=== PATIENT | male | born 1945 | race Caucasian/White ===

== ENCOUNTER 2023-08-16 16:20 | Inpatient (IN) | payer OTHER ==
[~2023-08-16] VITALS: Ht 170.2 cm; Wt 78.5 kg
[2023-08-16 16:25] VITALS: BP_SYST 135; PULSE 88; RESP 18; TEMP 98.5; O2SAT 98
[2023-08-16] MEDS ORDERED: DEXAMETHASONE SOD PHOSPHATE 10 MG/ML VIAL ONE (17:01)
[2023-08-16 17:44] LABS: BASOPHILS # (AUTO) 0.1 K/uL (0.0-0.2); BASOPHILS % (AUTO) 0.4 % (0.0-2.0); EOSINOPHILS # (AUTO) 0.1 K/uL (0.0-0.4); EOSINOPHILS % (AUTO) 0.4 % (0.0-4.0); HEMATOCRIT 46.3 % (36-54); HEMOGLOBIN 15.2 g/dL (14.0-18.0); LYMPHOCYTES # (AUTO) 1.2 K/uL (1.0-5.5); LYMPHOCYTES % (AUTO) 8.2 % (20.5-51.5); MEAN CORPUSCULAR HEMOGLOBIN 29 pg (27-31); MEAN CORPUSCULAR HGB CONC 33 % (32-36); MEAN CORPUSCULAR VOLUME 87 fL (79.0-98.0); MONOCYTES # (AUTO) 1.1 K/uL (0.0-1.0); MONOCYTES % (AUTO) 7.5 % (1.7-9.3); NEUTROPHILS # (AUTO) 12.2 K/uL (1.8-7.7); NEUTROPHILS % (AUTO) 83.5 % (40.0-70.0); PLATELET COUNT (AUTO) 356 K/uL (130-430); RED BLOOD CELL COUNT(AUTO) 5.32 MIL/uL (4.2-6.2); RED CELL DISTRIBUTION WIDTH 14.4 % (9.0-15.0); WHITE BLOOD COUNT (AUTO) 14.6 K/uL (4.8-10.8)
[2023-08-16 17:55] LABS: ALANINE AMINOTRANSFERASE 28 U/L (12-78); ALBUMIN 3.4 g/dL (3.4-4.8); ANION GAP 7 (5-15); ASPARTATE AMINOTRANSFERASE 21 U/L (10-37); CARBON DIOXIDE 28 mmol/L (23-29); CHLORIDE 97 mmol/L (98-107); CREATININE 1.01 mg/dL (0.55-1.30); GLUCOSE 122 mg/dL (74-106); LIPASE 25 U/L (16-77); POTASSIUM 4.5 mmol/L (3.5-5.1); SODIUM SERUM 132 mmol/L (136-145); TOTAL BILIRUBIN 0.7 mg/dL (0.0-1.0); TOTAL PROTEIN, SERUM 8.1 g/dL (6.4-8.3); UREA NITROGEN, BLOOD 15 mg/dL (8-21)
[2023-08-16] MEDS ORDERED: MORPHINE 4 MG INJ. 4 MG/ML VIAL IVP ONE ×2 (19:45→20:45)
[2023-08-16] MEDS ORDERED: KETOROLAC TROMETHAMINE 30 MG VIAL IVP ONE (19:45)
[2023-08-16] MEDS ORDERED: NACL 0.9% 1,000 ML IV ONE (19:45)
[2023-08-16] MEDS ORDERED: ONDANSETRON HCL 4 MG/2 ML VIAL IVP ONE (19:45)
[2023-08-16] MEDS ORDERED: LEVOFLOXACIN 250 MG/D5W 50 ML IV ONE (20:45)
[2023-08-16] MEDS ORDERED: metroNIDAZOLE 500 mg/NS 100 ML IV ONE (20:45)
[2023-08-16] MEDS ORDERED: ONDANSETRON HCL 4 MG/2 ML VIAL IVP PRN (23:00)
[2023-08-16] MEDS ORDERED: NALOXONE HCL 0.4 MG/ML AMP (NARCAN) IVP PRN (23:00)
[2023-08-16] MEDS ORDERED: ZOLPIDEM TARTRATE 5 MG TABLET PO PRN (23:00)
[2023-08-16] MEDS ORDERED: HYDROmorphone 1 MG/ML INJ. CARTRIDGE IVP PRN (23:00)
[2023-08-16] MEDS ORDERED: KETOROLAC TROMETHAMINE 15 MG VIAL IVP PRN (23:00)
[2023-08-16] MEDS ORDERED: ACETAMINOPHEN 325 MG TABLET PO PRN (23:00)
[2023-08-17] MEDS ORDERED: LISI2.5T48 PO (01:04)
[2023-08-17] MEDS ORDERED: CHOL500051 PO (01:04)
[2023-08-17 04:57] LABS: BILIRUBIN,URINE 1+ (NEGATIVE); BLOOD, URINE NEGATIVE (NEGATIVE); CLARITY/URINE CLEAR (CLEAR); COLOR,URINE YELLOW (YELLOW); GLUCOSE,URINE NEGATIVE (NEGATIVE); KETONES,URINE NEGATIVE (NEGATIVE); LEUKOCYTE ESTERASE ,URINE NEGATIVE (NEGATIVE); NITRITE, URINE NEGATIVE (NEGATIVE); PH,URINE 6.5 (5.0-8.0); PROTEIN URINE TRACE (NEGATIVE)
[2023-08-17 05:41] LABS: BACTERIA,URINE None Seen /HPF (None Seen)
[2023-08-17] MEDS: metroNIDAZOLE 500 mg/NS 100 ML IV SCH ×3 (06:12→22:30)
[2023-08-17 07:25] LABS: BASOPHILS % (AUTO) 0.2 % (0.0-2.0); EOSINOPHILS # (AUTO) 0.1 K/uL (0.0-0.4); EOSINOPHILS % (AUTO) 1.1 % (0.0-4.0); HEMATOCRIT 40.8 % (36-54); HEMOGLOBIN 13.5 g/dL (14.0-18.0); LYMPHOCYTES # (AUTO) 1.1 K/uL (1.0-5.5); LYMPHOCYTES % (AUTO) 9.7 % (20.5-51.5); MEAN CORPUSCULAR HEMOGLOBIN 29 pg (27-31); MEAN CORPUSCULAR HGB CONC 33 % (32-36); MEAN CORPUSCULAR VOLUME 88 fL (79.0-98.0); MONOCYTES # (AUTO) 1.3 K/uL (0.0-1.0); MONOCYTES % (AUTO) 12.1 % (1.7-9.3); NEUTROPHILS # (AUTO) 8.4 K/uL (1.8-7.7); NEUTROPHILS % (AUTO) 76.9 % (40.0-70.0); PLATELET COUNT (AUTO) 290 K/uL (130-430); RED BLOOD CELL COUNT(AUTO) 4.66 MIL/uL (4.2-6.2); RED CELL DISTRIBUTION WIDTH 14.6 % (9.0-15.0); WHITE BLOOD COUNT (AUTO) 10.9 K/uL (4.8-10.8)
[2023-08-17 07:32] LABS: PROTHROMBIN TIME 10.8 SECS (9.5-12.5)
[2023-08-17 08:06] LABS: ALBUMIN 2.8 g/dL (3.4-4.8); ANION GAP 5 (5-15); CALCIUM 8.5 mg/dL (8.4-11.0); CARBON DIOXIDE 28 mmol/L (23-29); CHLORIDE 100 mmol/L (98-107); CREATININE 0.94 mg/dL (0.55-1.30); GLUCOSE 138 mg/dL (74-106); LIPASE 25 U/L (16-77); POTASSIUM 4.4 mmol/L (3.5-5.1); SODIUM SERUM 133 mmol/L (136-145); TOTAL PROTEIN, SERUM 6.6 g/dL (6.4-8.3); UREA NITROGEN, BLOOD 17 mg/dL (8-21)
[2023-08-17 08:28] LABS: ALANINE AMINOTRANSFERASE 323 U/L (12-78); ASPARTATE AMINOTRANSFERASE 315 U/L (10-37)
[2023-08-17] MEDS: D5LR 1,000 ML IV SCH ×2 (09:10→21:15)
[2023-08-17] MEDS ORDERED: NS 500 ML IV ONE (09:15)
[2023-08-17 13:25] LABS: CREATINE KINASE, TOTAL 85 U/L (39-308)
[2023-08-17] MEDS ORDERED: ISOFLURANE 15 MIN GAS INH ONE (13:48)
[2023-08-17] MEDS ORDERED: LR 1,000 ML IV.SOLN IV ONE (13:48)
[2023-08-17] MEDS ORDERED: MIDAZOLAM HCL/PF 2 MG/2 ML SYRINGE ONE (13:48)
[2023-08-17] MEDS ORDERED: DEXAMETHASONE SOD PHOSPHATE 4 MG/ML VIAL ONE (13:48)
[2023-08-17] MEDS ORDERED: SEVOFLURANE 15 MIN GAS INH ONE (13:48)
[2023-08-17] MEDS ORDERED: fentaNYL CITRATE/PF 100 MCG/2 ML AMP ONE (13:48)
[2023-08-17] MEDS ORDERED: THROMBIN (BOVINE) 5000 UNITS/ VIAL TP ONE ×2 (13:48→15:11)
[2023-08-17] MEDS ORDERED: ONDANSETRON HCL 4 MG/2 ML VIAL ONE (13:48)
[2023-08-17] MEDS ORDERED: NS IRRIG SOLN 1000 ML IR ONE (13:48)
[2023-08-17] MEDS ORDERED: PROPOFOL 200MG/ 20ML VIAL (DIPRIVAN) IV ONE (13:48)
[2023-08-17] MEDS ORDERED: ROCURONIUM BROMIDE 10 MG/ML (ZEMURON) ONE (13:48)
[2023-08-17] MEDS ORDERED: BUPIVACAINE /PF 0.25% 30 ML VIAL INJ ONE (13:48)
[2023-08-17] MEDS ORDERED: LABETALOL 100 MG/ 20ML VIAL IVP PRN (14:30)
[2023-08-17] MEDS ORDERED: HYDROmorphone 1 MG/ML INJ. CARTRIDGE IVP PRN ×2 (14:30)
[2023-08-17] MEDS ORDERED: MEPERIDINE HCL/PF 25 MG/ML DISP.SYRIN IVP PRN (14:30)
[2023-08-17] MEDS ORDERED: METOCLOPRAMIDE HCL 10 MG/2 ML VIAL IVP PRN (14:30)
[2023-08-17] MEDS ORDERED: hydrALAZINE HCL 20 MG/ML VIAL IVP PRN (14:30)
[2023-08-17] MEDS ORDERED: LR 1,000 ML IV SCH (14:30)
[2023-08-17 15:46] LABS: CHOLESTEROL 173 mg/dL (<200); HDL CHOLESTEROL 69 mg/dL (>45); TRIGLYCERIDES 72 mg/dL (30-150)
[2023-08-17] MEDS ORDERED: ONDANSETRON HCL 4 MG/2 ML VIAL IVP PRN (16:00)
[2023-08-17] MEDS ORDERED: ACETAMINOPHEN 325 MG TABLET PO PRN (16:00)
[2023-08-17] MEDS ORDERED: metroNIDAZOLE 500 mg/NS 100 ML IV SCH (16:00)
[2023-08-17] MEDS ORDERED: NALOXONE HCL 2 MG/2 ML SYR IVP PRN ×2 (16:00)
[2023-08-17] MEDS ORDERED: HYDROmorphone 1 MG/ML INJ. CARTRIDGE ONE (16:20)
[2023-08-17 16:54] LABS: BASOPHILS % (AUTO) 0.1 % (0.0-2.0); EOSINOPHILS % (AUTO) 0.1 % (0.0-4.0); HEMATOCRIT 39.9 % (36-54); HEMOGLOBIN 13.1 g/dL (14.0-18.0); LYMPHOCYTES # (AUTO) 0.8 K/uL (1.0-5.5); LYMPHOCYTES % (AUTO) 8.3 % (20.5-51.5); MEAN CORPUSCULAR HEMOGLOBIN 29 pg (27-31); MEAN CORPUSCULAR HGB CONC 33 % (32-36); MEAN CORPUSCULAR VOLUME 89 fL (79.0-98.0); MONOCYTES # (AUTO) 0.6 K/uL (0.0-1.0); MONOCYTES % (AUTO) 5.4 % (1.7-9.3); NEUTROPHILS # (AUTO) 8.8 K/uL (1.8-7.7); NEUTROPHILS % (AUTO) 86.1 % (40.0-70.0); PLATELET COUNT (AUTO) 287 K/uL (130-430); RED BLOOD CELL COUNT(AUTO) 4.51 MIL/uL (4.2-6.2); RED CELL DISTRIBUTION WIDTH 14.5 % (9.0-15.0); WHITE BLOOD COUNT (AUTO) 10.2 K/uL (4.8-10.8)
[2023-08-17 21:00] VITALS: BP_SYST 106; BP_SYST 111; PULSE 107; RESP 22; TEMP 98; O2SAT 93
[2023-08-17 21:21] LABS: BASOPHILS % (AUTO) 0.2 % (0.0-2.0); HEMOGLOBIN 11.8 g/dL (14.0-18.0); LYMPHOCYTES # (AUTO) 0.4 K/uL (1.0-5.5); LYMPHOCYTES % (AUTO) 4.3 % (20.5-51.5); MEAN CORPUSCULAR HEMOGLOBIN 29 pg (27-31); MEAN CORPUSCULAR HGB CONC 33 % (32-36); MONOCYTES # (AUTO) 0.7 K/uL (0.0-1.0); MONOCYTES % (AUTO) 6.4 % (1.7-9.3); NEUTROPHILS % (AUTO) 89.1 % (40.0-70.0); PLATELET COUNT (AUTO) 261 K/uL (130-430); RED BLOOD CELL COUNT(AUTO) 4.12 MIL/uL (4.2-6.2); RED CELL DISTRIBUTION WIDTH 14.3 % (9.0-15.0); WHITE BLOOD COUNT (AUTO) 10.2 K/uL (4.8-10.8)
[2023-08-17 21:23] LABS: MEAN CORPUSCULAR VOLUME 87 fL (79.0-98.0)
[2023-08-17 22:00] VITALS: BP_SYST 99; PULSE 98; RESP 14; O2SAT 94
[2023-08-17] MEDS ORDERED: CEFAZOLIN 2 GM IVPB PREMIX 50 ML IV ONE (22:24)
[2023-08-17] MEDS ORDERED: metroNIDAZOLE 500 mg/NS 100 ML IV ONE ×2 (22:25→23:53)
[2023-08-17] MEDS: CEFAZOLIN 2 GM IVPB PREMIX 50 ML IV SCH (22:32)
[2023-08-17] MEDS: NACL 0.9% 1,000 ML IV SCH (22:33)
[2023-08-17 23:00] VITALS: BP_SYST 106; PULSE 99; RESP 14; O2SAT 93
[2023-08-18] VITALS (19 sets, daily range): BP systolic 83–133; PULSE 72–104; RESP 7–30; TEMP 97.9–98.9; O2SAT 88–95
[2023-08-18] MEDS: HYDROcodone/ACETAMIN 5-325 MG TAB (NORCO/ VICODIN) PO PRN ×2 (00:28→23:24)
[2023-08-18] MEDS: NACL 0.9% 1,000 ML IV SCH ×3 (02:00→23:08)
[2023-08-18] MEDS: metroNIDAZOLE 500 mg/NS 100 ML IV SCH ×3 (05:14→23:07)
[2023-08-18 06:02] LABS: BASOPHILS % (AUTO) 0.1 % (0.0-2.0); EOSINOPHILS % (AUTO) 0.1 % (0.0-4.0); HEMOGLOBIN 11.5 g/dL (14.0-18.0)
[2023-08-18 06:44] LABS: ALANINE AMINOTRANSFERASE 210 U/L (12-78); ALBUMIN 2.1 g/dL (3.4-4.8); ANION GAP 7 (5-15); ASPARTATE AMINOTRANSFERASE 135 U/L (10-37); CALCIUM 8.1 mg/dL (8.4-11.0); CARBON DIOXIDE 24 mmol/L (23-29); CHLORIDE 100 mmol/L (98-107); CREATININE 0.81 mg/dL (0.55-1.30); GLUCOSE 144 mg/dL (74-106); LIPASE 11 U/L (16-77); POTASSIUM 3.8 mmol/L (3.5-5.1); SODIUM SERUM 131 mmol/L (136-145); THYROID STIMULATING HORMONE 0.78 uIu/mL (0.36-3.74); TOTAL BILIRUBIN 1.4 mg/dL (0.0-1.0); UREA NITROGEN, BLOOD 15 mg/dL (8-21)
[2023-08-18 07:38] LABS: HEMATOCRIT 35.7 % (36-54); LYMPHOCYTES # (AUTO) 1.1 K/uL (1.0-5.5); LYMPHOCYTES % (AUTO) 10.8 % (20.5-51.5); MEAN CORPUSCULAR HEMOGLOBIN 28 pg (27-31); MEAN CORPUSCULAR HGB CONC 32 % (32-36); MEAN CORPUSCULAR VOLUME 88 fL (79.0-98.0); MONOCYTES % (AUTO) 10.2 % (1.7-9.3); NEUTROPHILS # (AUTO) 7.9 K/uL (1.8-7.7); NEUTROPHILS % (AUTO) 78.8 % (40.0-70.0); PLATELET COUNT (AUTO) 250 K/uL (130-430); RED BLOOD CELL COUNT(AUTO) 4.06 MIL/uL (4.2-6.2); RED CELL DISTRIBUTION WIDTH 14.6 % (9.0-15.0)
[2023-08-18] MEDS: CEFAZOLIN 2 GM IVPB PREMIX 50 ML IV SCH (08:28)
[2023-08-18] MEDS: HYDROmorphone 1 MG/ML INJ. CARTRIDGE IVP PRN (08:29)
[2023-08-19] MEDS: HYDROmorphone 1 MG/ML INJ. CARTRIDGE IVP PRN ×3 (00:35→11:43)
[2023-08-19 05:12] LABS: BASOPHILS % (AUTO) 0.5 % (0.0-2.0); EOSINOPHILS # (AUTO) 0.3 K/uL (0.0-0.4); EOSINOPHILS % (AUTO) 3.1 % (0.0-4.0); HEMATOCRIT 30.9 % (36-54); HEMOGLOBIN 10.1 g/dL (14.0-18.0); LYMPHOCYTES # (AUTO) 1.5 K/uL (1.0-5.5); LYMPHOCYTES % (AUTO) 16.5 % (20.5-51.5); MEAN CORPUSCULAR HEMOGLOBIN 28 pg (27-31); MEAN CORPUSCULAR HGB CONC 33 % (32-36); MEAN CORPUSCULAR VOLUME 87 fL (79.0-98.0); MONOCYTES # (AUTO) 0.8 K/uL (0.0-1.0); MONOCYTES % (AUTO) 9.1 % (1.7-9.3); NEUTROPHILS # (AUTO) 6.3 K/uL (1.8-7.7); NEUTROPHILS % (AUTO) 70.8 % (40.0-70.0); PLATELET COUNT (AUTO) 231 K/uL (130-430); RED BLOOD CELL COUNT(AUTO) 3.55 MIL/uL (4.2-6.2); RED CELL DISTRIBUTION WIDTH 14.3 % (9.0-15.0); WHITE BLOOD COUNT (AUTO) 8.8 K/uL (4.8-10.8)
[2023-08-19 05:54] LABS: ALANINE AMINOTRANSFERASE 117 U/L (12-78); ANION GAP 9 (5-15); ASPARTATE AMINOTRANSFERASE 46 U/L (10-37); CALCIUM 8.2 mg/dL (8.4-11.0); CARBON DIOXIDE 25 mmol/L (23-29); CHLORIDE 104 mmol/L (98-107); CREATININE 0.76 mg/dL (0.55-1.30); GLUCOSE 116 mg/dL (74-106); POTASSIUM 3.7 mmol/L (3.5-5.1); SODIUM SERUM 138 mmol/L (136-145); TOTAL BILIRUBIN 0.9 mg/dL (0.0-1.0); TOTAL PROTEIN, SERUM 5.9 g/dL (6.4-8.3); UREA NITROGEN, BLOOD 10 mg/dL (8-21)
[2023-08-19] MEDS: metroNIDAZOLE 500 mg/NS 100 ML IV SCH ×2 (06:18→14:21)
[2023-08-19 08:00] VITALS: BP_SYST 110; PULSE 80; RESP 16; TEMP 97.8; O2SAT 95
[2023-08-19] MEDS ORDERED: HYDR-3919 PO (18:06)
[2023-08-19] MEDS ORDERED: AUG875 PO (18:06)
[2023-08-19] MEDS ORDERED: MULT-952 PO (18:13)
[2023-08-19 18:36] VITALS: BP_SYST 108; PULSE 82; RESP 18; TEMP 97.3; O2SAT 95
== END 2023-08-19 19:50 | disposition home or self-care (01) | DRG 418 ==
LOC: SED 16:20 → SMU 20:44 → SIC 08-17 20:30 → STU 08-18 18:30
PROVIDERS: ADMIT Internal Medicine; ATTEND Internal Medicine
PROC: 0FT44ZZ Resection of Gallbladder, Percutaneous Endoscopic Approach (ICD-10-PCS; principal; 2023-08-17 13:51)
DX: K80.00 Calculus of gallbladder with acute cholecystitis without obstruction (principal); D62 Acute posthemorrhagic anemia; K82.1 Hydrops of gallbladder; E87.1 Hypo-osmolality and hyponatremia; E44.1 Mild protein-calorie malnutrition; E78.5 Hyperlipidemia, unspecified; I10 Essential (primary) hypertension; Z79.899 Other long term (current) drug therapy; Z68.27 Body mass index [BMI] 27.0-27.9, adult
CPT/HCPCS: 36415; 71045; 76376; 76700-TC; 78226; 80053; 80061; 81000; 81001; 81015; 82550; 83690; 84443; 84484; 85025; 85610-TC; 85730-TC; 86886; 86900; 86901; 87040; 88304; 93005; 93306; 96374; 96375; 99285; A9537; C1727; G0378; J0690; J1100; J1170; J1885; J1956; J2270; J2405; J2704; J3010; J3465; J3490; J7120